=== PATIENT | male | born 1985 | race African-American/Black ===

== ENCOUNTER 2022-04-29 11:08 | Emergency (ER) | payer SELFPAY | END 2022-04-29 12:18 | disposition home or self-care (01) | LOC: CSHERS 11:08 | DX: K08.89 Other specified disorders of teeth and supporting structures (principal) | CPT/HCPCS: 99282 ==

== ENCOUNTER 2022-12-09 03:15 | Emergency (ER) | payer OTHER, SELFPAY | END 2022-12-09 03:40 | disposition home or self-care (01) | LOC: CSHERS 03:15 | DX: H92.01 Otalgia, right ear (principal) | CPT/HCPCS: 99282 ==

== ENCOUNTER 2022-12-20 23:41 | Emergency (ER) | payer OTHER ==
[2022-12-21] MEDS ORDERED: Dexamethasone 10 MG/ML VIAL ONE (00:27)
[2022-12-21 01:19] LABS: SARS-CoV-2 NAA Rapid Test Not Detected (NotDetected)
== END 2022-12-21 00:36 | disposition home or self-care (01) ==
LOC: CSHERS 23:41
DX: B34.9 Viral infection, unspecified (principal); Z20.822 Contact with and (suspected) exposure to COVID-19
CPT/HCPCS: 99283; J1100

== ENCOUNTER 2023-07-08 16:38 | Emergency (ER) | payer OTHER, SELFPAY ==
[2023-07-08] MEDS ORDERED: Ketorolac Tromethamine 30 MG/ML VIAL ONE (17:08)
[2023-07-08] MEDS ORDERED: Cyclobenzaprine 10 MG TAB ONE (17:09)
[2023-07-08] MEDS ORDERED: Lidocaine 4% Patch TD SCH (17:15)
== END 2023-07-08 17:17 | disposition home or self-care (01) ==
LOC: CSHERS 16:38
DX: S39.012A Strain of muscle, fascia and tendon of lower back, initial encounter (principal); X50.1XXA Overexertion from prolonged static or awkward postures, initial encounter
CPT/HCPCS: 99283; J1885